=== PATIENT | male | born 1990 | race Caucasian/White ===

== ENCOUNTER 2017-12-31 12:59 | Observation (INO) ==
[2017-12-31] MEDS ORDERED: Bisacodyl 10 MG Supp RECTAL PRN (18:15)
[2017-12-31] MEDS: Sod Chloride 0.9% Inj 1,000 ML IV.CONT SCH (21:00)
[2017-12-31] MEDS: Senna/Docusate Sodium 8.6/50 MG Tablet PO SCH (22:47)
[2018-01-01 01:50] LABS: Amphetamine Screen,Urine Neg (Neg); Barbiturate Screen,Urine Neg (Neg)
[2018-01-01 01:51] LABS: Cannabinoid Screen,Urine Pos (Neg); Cocaine Screen,Urine Neg (Neg)
[2018-01-01 02:16] LABS: Opiate Screen,Urine Neg (Neg)
[2018-01-01] MEDS: Sod Chloride 0.9% Inj 1,000 ML IV.CONT SCH ×3 (05:11→20:20)
[2018-01-01 06:01] LABS: Baso # (Auto) 0.1 th/mm3 (0.0-0.2); Baso % (Auto) 1.2 % (0.0-2.0); Eos # (Auto) 0.4 th/mm3 (0.0-0.4); Eos % (Auto) 6.5 % (0.0-4.0); Hematocrit 40.2 % (39.0-51.0); Hemoglobin 13.3 gm/dL (13.0-17.0); Lymph # (Auto) 3.3 th/mm3 (1.0-4.8); Lymph % (Auto) 49.4 % (9.0-44.0); Mean Corpuscular HGB Conc 33.2 % (32.0-36.0); Mean Corpuscular Hemoglobin 29.1 pg (27.0-34.0); Mean Corpuscular Volume 87.7 fL (80.0-100.0); Mono # (Auto) 0.5 th/mm3 (0.0-0.9); Mono % (Auto) 7.2 % (0.0-8.0); Neut # (Auto) 2.4 th/mm3 (1.8-7.7); Neut % (Auto) 35.7 % (16.0-70.0); Platelet Count 200 th/mm3 (150-450); Red Blood Count 4.58 mil/mm3 (4.50-5.90); Red Cell Distribution Width 15.1 % (11.6-17.2); White Blood Count 6.7 th/mm3 (4.0-11.0)
[2018-01-01 06:07] LABS: Chloride 108 meq/L (98-107); Potassium 3.7 meq/L (3.5-5.1); Sodium 142 meq/L (136-145)
[2018-01-01 06:11] LABS: Albumin 2.8 g/dL (3.4-5.0); Anion Gap 7 meq/L (5-15); Blood Urea Nitrogen 7 mg/dL (7-18); Calcium 8.1 mg/dL (8.5-10.1); Glucose,Random 91 mg/dL (74-106); Prothrombin Time 10.5 sec (9.8-11.6)
[2018-01-01 06:14] LABS: Alanine Aminotransferase 867 U/L (12-78); Aspartate Aminotransferase 279 U/L (15-37); Glomerular Filtration Rate Greater Than 89 mL/min (>89)
[2018-01-01 06:16] LABS: Total Protein 5.7 g/dL (6.4-8.2)
[2018-01-01 06:17] LABS: Alkaline Phosphatase 125 U/L (45-117)
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
[2018-01-01] MEDS: Senna/Docusate Sodium 8.6/50 MG Tablet PO SCH ×2 (10:30→20:20)
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
[2018-01-01 16:57] LABS: Thyroid Stimulating Hormone 1.16 uIU/mL (0.358-3.740)
[2018-01-01 19:32] LABS: % Iron Saturation 68.6 % (20-50)
[2018-01-01 19:50] LABS: Mono Screen Neg (Neg)
[2018-01-01 22:00] LABS: Hepatitis A IgM Antibody Nonreactive (Nonreactive)
[2018-01-01 22:01] LABS: Hepatitits B Surface Antigen Nonreactive (Nonreactive)
[2018-01-02] MEDS: Sod Chloride 0.9% Inj 1,000 ML IV.CONT SCH (06:07)
[2018-01-02 06:12] LABS: Prothrombin Time 10.2 sec (9.8-11.6)
[2018-01-02 06:24] LABS: Chloride 107 meq/L (98-107); Potassium 3.7 meq/L (3.5-5.1); Sodium 143 meq/L (136-145)
[2018-01-02 06:30] LABS: Calcium 8.3 mg/dL (8.5-10.1)
[2018-01-02 06:31] LABS: Albumin 2.9 g/dL (3.4-5.0); Anion Gap 4 meq/L (5-15); Blood Urea Nitrogen 7 mg/dL (7-18); Carbon Dioxide 31.6 meq/L (21.0-32.0); Glucose,Random 105 mg/dL (74-106)
[2018-01-02 06:34] LABS: Alanine Aminotransferase 710 U/L (12-78); Aspartate Aminotransferase 176 U/L (15-37); Glomerular Filtration Rate Greater Than 89 mL/min (>89)
[2018-01-02 06:35] LABS: Total Protein 5.9 g/dL (6.4-8.2)
[2018-01-02 06:37] LABS: Alkaline Phosphatase 122 U/L (45-117)
--- NOTE | 2018-01-02 08:27 | P.PN ---
Subjective Interval history: F/U hepatitis. Still asymptomatic made aware + Hep C Physical Exam Vital signs: Vital Signs 01/01/18 12:00 01/01/18 15:48 01/01/18 20:29 Temperature 97.5 F L 97.6 F 97.8 F Pulse Rate 50 L 68 75 Respiratory Rate 20 20 20 Blood Pressure 116/52 L 105/50 L 118/72 Pulse Oximetry 98 99 97 01/02/18 00:00 Temperature 96 F L Pulse Rate 54 L Respiratory Rate 20 Blood Pressure 95/53 L Pulse Oximetry 97 Intake & Output 01/01/18 01/02/18 01/02/18 18:59 06:59 18:59 Intake Total 1442 / 1442 3060 / 3060 Balance 1442 / 1442 3060 / 3060 Weight 60.9 kg Intake: IV 1000 / 1000 2100 / 2100 NS Inj 1,000 ML @ 100 mls/hr IV 1000 / 1000 1999 / 1999 .CONT .Q10H [facility] Rx#:[id number] Rocephin Inj 1,000 MG In NS Inj 100 / 100 100 ML @ 200 mls/hr IV.SIG Q24H [facility] Rx#:[id number] Oral 442 / 442 960 / 960 Other: # Voids 6 3 Date of Last Bowel Movement 12/31/17 12/31/17 Narrative: GENERAL: Well-developed, well-nourished in no distress SKIN: Warm and dry. CARDIOVASCULAR: Regular rate and rhythm. RESPIRATORY: No accessory muscle use. Clear to auscultation. Breath sounds equal bilaterally. GASTROINTESTINAL: Abdomen soft, non-tender, nondistended. MUSCULOSKELETAL: Extremities without clubbing, cyanosis, or edema. No obvious deformities. NEUROLOGICAL: Awake and alert. No obvious cranial nerve deficits. Motor grossly within normal limits. Five out of 5 muscle strength in the arms and legs. Normal speech. Results - Labs CBC & Chem 7: 01/01/18 04:59 01/02/18 05:12 Laboratory Results - last 24 hr 01/01/18 01/01/18 01/01/18 15:42 15:42 15:42 PT INR Sodium Potassium Chloride Carbon Dioxide Anion Gap BUN Creatinine Estimated GFR Random Glucose Calcium Iron 268 H TIBC 391 % Saturation 68.6 H Total Bilirubin AST ALT Alkaline Phosphatase Total Protein Albumin TSH 1.160 Hepatitis A IgM Ab Nonreactive Hep Bs Antigen Nonreactive Hep B Core IgM Ab Nonreactive Hep C IgG Ab Reactive H Monoscreen Neg 01/02/18 01/02/18 05:12 05:12 PT 10.2 INR 1.0 Sodium 143 Potassium 3.7 Chloride 107 Carbon Dioxide 31.6 Anion Gap 4 L BUN 7 Creatinine 0.67 Estimated GFR Greater than 89 Random Glucose 105 Calcium 8.3 L Iron TIBC % Saturation Total Bilirubin 1.3 H AST 176 H ALT 710 H Alkaline Phosphatase 122 H Total Protein 5.9 L Albumin 2.9 L TSH Hepatitis A IgM Ab Hep Bs Antigen Hep B Core IgM Ab Hep C IgG Ab Monoscreen - Imaging Impressions Liver Ultrasound 01/01/18 00:00 CONCLUSION: 1. Unremarkable exam. The liver and kidneys are unremarkable in appearance. - Procedures NOne Assessment and Plan - Plan This is a 27-year-old male with a history of asthma and chronic pain on Suboxone. He presents to the emergency department because of back pain with dark colored urine and burning upon urination. LFTs were significantly elevated total bilirubin 2.3, AST 467, ALT 1243 and alkaline phosphatase 156. Abdominal CT ultrasound unremarkable. Acute transaminitis. Improving and asymptomatic. + Hep C o/p f/u with GI. [place] precautions Abnormal urinalysis possible urethritis. Gonorrhea and Chlamydia screen negative. Urine culture NGTD switch to po Cipro DVT prophylaxis, patient is ambulatory Discharge Planning: Discharge patient to home Condition on discharge: Improved Regular Diet as tolerated Ad Liya activity Rx written: Cipro Follow-up with primary care physician and GI
--- NOTE | 2018-01-02 08:36 | P.PNGI ---
Subjective Interval history: Patient walking in the room with no complaints Physical Exam Vital signs: Vital Signs 01/01/18 12:00 01/01/18 15:48 01/01/18 20:29 Temperature 97.5 F L 97.6 F 97.8 F Pulse Rate 50 L 68 75 Respiratory Rate 20 20 20 Blood Pressure 116/52 L 105/50 L 118/72 Pulse Oximetry 98 99 97 01/02/18 00:00 Temperature 96 F L Pulse Rate 54 L Respiratory Rate 20 Blood Pressure 95/53 L Pulse Oximetry 97 Intake & Output 01/01/18 01/02/18 01/02/18 18:59 06:59 18:59 Intake Total 1442 / 1442 3060 / 3060 Balance 1442 / 1442 3060 / 3060 Weight 60.9 kg Intake: IV 1000 / 1000 2100 / 2100 NS Inj 1,000 ML @ 100 mls/hr IV 1000 / 1000 2000 / 1999 .CONT .Q10H [facility] Rx#:[id number] Rocephin Inj 1,000 MG In NS Inj 100 / 100 100 ML @ 200 mls/hr IV.SIG Q24H [facility] Rx#:[id number] Oral 442 / 442 960 / 960 Other: # Voids 6 3 Date of Last Bowel Movement 12/31/17 12/31/17 - Constitutional no acute distress - Routine HEENT Exam Head: Present: normocephalic Eye: Present: EOMI ENT: Present: mucous membranes moist - Routine Neck Exam Present: supple - Routine Respiratory Exam Present: CTA bilaterally - Routine Cardiovascular Exam Present: RRR - Routine Abdominal Exam Present: soft, normoactive bowel sounds - Routine Extremities Exam Absent: cyanosis, clubbing, edema Results - Labs CBC & Chem 7: 01/01/18 04:59 01/02/18 05:12 Laboratory Results - last 24 hr 01/01/18 01/01/18 01/01/18 15:42 15:42 15:42 PT INR Sodium Potassium Chloride Carbon Dioxide Anion Gap BUN Creatinine Estimated GFR Random Glucose Calcium Iron 268 H TIBC 391 % Saturation 68.6 H Total Bilirubin AST ALT Alkaline Phosphatase Total Protein Albumin TSH 1.160 Hepatitis A IgM Ab Nonreactive Hep Bs Antigen Nonreactive Hep B Core IgM Ab Nonreactive Hep C IgG Ab Reactive H Monoscreen Neg 01/02/18 01/02/18 05:12 05:12 PT 10.2 INR 1.0 Sodium 143 Potassium 3.7 Chloride 107 Carbon Dioxide 31.6 Anion Gap 4 L BUN 7 Creatinine 0.67 Estimated GFR Greater than 89 Random Glucose 105 Calcium 8.3 L Iron TIBC % Saturation Total Bilirubin 1.3 H AST 176 H ALT 710 H Alkaline Phosphatase 122 H Total Protein 5.9 L Albumin 2.9 L TSH Hepatitis A IgM Ab Hep Bs Antigen Hep B Core IgM Ab Hep C IgG Ab Monoscreen - Imaging Impressions Liver Ultrasound 01/01/18 00:00 CONCLUSION: 1. Unremarkable exam. The liver and kidneys are unremarkable in appearance. - Procedures NOne Assessment and Plan - Plan Patient with elevated liver function tests most likely this is acute hepatitis hepatitis C has come back positive and most likely this patient has acute hepatitis C Workup in progress this could be followed up on an outpatient basis it does look like his numbers are coming down and so this appears to be resolving and patient may be discharged from a GI standpoint he may be discharged from a GI standpoint
[2018-01-03 13:26] LABS: Smooth Muscle Total Auto Abs Negative (Negative)
[2018-01-04 11:51] LABS: IgA Serum 129 mg/dL (81-463); Tissue Transglutaminase Ab IgG ND U/mL (())
[2018-01-04 19:50] LABS: Ceruloplasmin 29 mg/dL (18-36)
[2018-01-05 02:49] LABS: DS DNA Ab (Crithidia) NEGATIVE (NEGATIVE)
== END 2018-01-02 08:50 | disposition home or self-care (01) ==
LOC: PHEDDLT 12:59 → INTOOBSV 20:00 → PH3 20:00
PROVIDERS: ADMIT Internal Medicine; ATTEND Internal Medicine